=== PATIENT | female | born 1965 | race Caucasian/White ===

== ENCOUNTER 2021-09-14 12:32 | Outpatient (REF) | payer OTHER, SELFPAY ==
--- NOTE | ~2021-09-14 | XR_ITS ---
EXAMINATION: XR SHOULDER, RIGHT CLINICAL INFORMATION: Shoulder pain COMPARISON: Radiographs right shoulder 02/13/2019, MR right shoulder 08/18/2019 TECHNIQUE: Right shoulder is imaged in 3 views. FINDINGS: No fracture or dislocation or destructive process. No visible rotator cuff calcifications. The acromioclavicular alignment is normal. There are mild degenerative changes acromioclavicular joint. Spurring is present at the inferior medial humeral head. No erosive changes glenohumeral joint. XR/XR shoulder RT min 2V IMPRESSION: Spurring inferior medial humeral head. Mild degenerative changes acromioclavicular joint.
== END 2021-09-14 12:33 | disposition home or self-care (01) ==
LOC: HO.HOSX 12:32
PROVIDERS: Visit Provider Orthopaedic Surgery
DX: M67.911 Unspecified disorder of synovium and tendon, right shoulder (principal)
CPT/HCPCS: 20610; 73030; 99212; J1100

== ENCOUNTER 2021-10-06 14:26 | Outpatient (REF) | payer OTHER, SELFPAY ==
--- NOTE | ~2021-10-06 | MR_ITS ---
EXAMINATION: MR SHOULDER WITHOUT CONTRAST, RIGHT CLINICAL INFORMATION: Unspecified disorder of synovium in tendon. COMPARISON: X-rays of the right shoulder September 2021 MRI of the right shoulder August 2019. TECHNIQUE: MRI of the shoulder without contrast was performed on a high-field scanner. FINDINGS: ROTATOR CUFF: Supraspinatus: There is heterogeneity and slight thickening of the tendon, unchanged compared to prior, compatible with tendinosis and perhaps small areas of intrasubstance partial tearing but no measurable defect or tendon retraction. The muscle is normal. Remaining rotator cuff muscles and tendons normal. BICEPS: Normal. CORACOACROMIAL ARCH: The undersurface of the acromion is curved with no subacromial spur. There is mild hypertrophic osteoarthritis of the acromioclavicular joint unchanged. SUBACROMIAL-SUBDELTOID BURSA: Normal. LABRUM/CAPSULE: Minimal heterogeneity of the superior labrum, unchanged, compatible with degenerative change or nondisplaced degenerative tearing. GLENOHUMERAL JOINT/MARROW: There are prominent marginal osteophytes along the inferior aspect of the humeral head. There is scattered cartilage heterogeneity nonuniform up up to high-grade cartilage loss involving the humeral head and glenoid cartilage slightly progressed compared to prior. There is a mild joint effusion and synovitis. Findings indicative of moderate osteoarthritis MR/MR shoulder RT wo con IMPRESSION: Stable abnormality of the supraspinatus compatible with tendinosis and perhaps scattered small areas of partial tearing but no measurable defect or tendon retraction. Mild osteoarthritis of the acromioclavicular joint unchanged. Moderate osteoarthritis of glenohumeral joint with degenerative changes slightly, progressed compared with the prior examination 2018. Mild abnormality of the superior labrum, unchanged, compatible with degenerative change or nondisplaced degenerative tearing.
== END 2021-10-06 14:27 | disposition home or self-care (01) ==
LOC: HO.MRI 14:26
PROVIDERS: PCP Family Medicine; Visit Provider Orthopaedic Surgery
DX: M67.911 Unspecified disorder of synovium and tendon, right shoulder (principal)
CPT/HCPCS: 73221

== ENCOUNTER → 2021-10-12 13:39 | Outpatient (BNVA) | payer OTHER, SELFPAY | PROVIDERS: PCP Family Medicine; Visit Provider Orthopaedic Surgery | DX: M19.011 Primary osteoarthritis, right shoulder (principal) | CPT/HCPCS: 20610; 99212; J1100 ==

== ENCOUNTER 2021-10-22 12:19 | Outpatient (REF) | payer OTHER, SELFPAY | END 2021-10-22 12:20 | disposition home or self-care (01) | LOC: HO.HOSX 12:19 | PROVIDERS: Visit Provider Orthopaedic Surgery | DX: Z13.89 Encounter for screening for other disorder (principal) ==

== ENCOUNTER 2021-12-28 07:26 | Outpatient (REF) | payer OTHER, SELFPAY ==
--- NOTE | ~2021-12-28 | XR_ITS ---
EXAMINATION: XR SHOULDER, LEFT CLINICAL INFORMATION: Pain COMPARISON: Previous x-ray February 2019 TECHNIQUE: AP of the left shoulder. FINDINGS: Bone alignment is normal. No fracture or dislocation is seen. There is mild arthritis at the glenohumeral and acromioclavicular joints. Soft tissues are unremarkable. XR/XR shoulder LT 1V IMPRESSION: Mild arthritis.
== END 2021-12-28 07:27 | disposition home or self-care (01) ==
LOC: HO.HOSX 07:26
PROVIDERS: Visit Provider Orthopaedic Surgery
DX: M19.011 Primary osteoarthritis, right shoulder (principal)
CPT/HCPCS: 73020; 99212